=== PATIENT | female | born 1990 | race Caucasian/White ===

== ENCOUNTER 2022-01-31 17:20 | Inpatient (IN) ==
[2022-01-31 18:37] LABS: Basophils % 0.5 %; Eosinophils # 0.1 K/mcL (0.0-0.6); Eosinophils % 0.8 %; Hematocrit 39.1 % (35.3-44.9); Hemoglobin 13.3 g/dL (11.5-15.4); Immature Granulocytes % 0.3 % (0-4); Lymphocytes # 1.9 K/mcL (0.6-4.6); Lymphocytes % 25.8 %; Mean Corpuscular Hemoglobin 30.6 pg (28.0-33.3); Mean Corpuscular Volume 89.9 fL (83.0-100.0); Mean Platelet Volume 9.1 fL (9.4-12.4); Monocytes # 0.5 K/mcL (0.0-1.3); Monocytes % 6.8 %; Neutrophils # 4.9 K/mcL (1.6-8.9); Platelet Count 236 K/mcL (140-400); Red Blood Count 4.35 M/mcL (3.82-4.97); Red Cell Distribution Width 12.3 % (11.5-14.5); Segmented Neutrophils % 65.8 %; White Blood Count 7.4 K/mcL (4.3-11.1)
[2022-01-31 18:51] LABS: Acetaminophen < 10 mcg/mL (10-20); BUN/Creatinine Ratio 22 (6-26); Blood Urea Nitrogen 9 mg/dL (6-20); Calcium 8.9 mg/dL (8.6-10.3); Carbon Dioxide 24 mEq/L (23-29); Chloride 104 mEq/L (98-107); Ethanol < 10 mg/dL (Less than 10); Glucose 101 mg/dL (70-105); Osmolality,Calculated 279 (280-300); Potassium 3.3 mEq/L (3.5-5.1); Salicylate < 2.5 mg/dL (15.0-30.0); Sodium 135 mEq/L (136-145); eGFR For African Americans > 60 (> 60); eGFR For Non-African Americans > 60 (> 60)
[2022-01-31 18:52] LABS: Bacteria,Urine Few per hpf (None-Few); Bilirubin,Urine Negative (Negative); Blood,Urine Negative (Negative); Clarity,Urine Clear (Clear); Color,Urine Light-Yellow (Yellow); Glucose,Urine (UA) >=1000 mg/dL (Normal); Ketones,Urine Negative (Negative); Leukocyte Esterase,Urine Negative (Negative); Mucus,Urine Few per lpf (None-Few); Nitrite,Urine Negative (Negative); Protein,Urine Trace mg/dL (Neg-Trace); RBC,Urine 0-3 per hpf (0-3); Specific Gravity,Urine 1.027 (1.010-1.025); Squamous Epithelial Cell,Urine Moderate per hpf (None-Few); Urobilinogen,Urine Normal (Normal); WBC,Urine 0-3 per hpf (0-3)
[2022-01-31] MEDS ORDERED: cephALEXin 500 MG CAPSULE PO ONE (18:55)
[2022-01-31 19:09] LABS: Amphetamine Screen,Urine Negative ng/mL (Cutoff=1000); Barbiturate Screen,Urine Negative ng/mL (Cutoff=200); Benzodiazepines Screen,Urine Negative ng/mL (Cutoff=200); Cannabinoid Screen,Urine Positive ng/mL (Cutoff = 50); Cocaine Screen,Urine Negative ng/mL (Cutoff= 300); Opiate Screen,Urine Negative ng/mL (Cutoff=300); Phencyclidine Screen,Urine Negative ng/mL (Cutoff=25)
[2022-02-01] MEDS ORDERED: Acetaminophen 325 MG TABLET PO ONE (20:42)
[2022-02-01] MEDS: lamoTRIgine 25 MG TABLET PO SCH (21:14)
[2022-02-01] MEDS: hydrOXYzine pamoate 25 MG CAPSULE PO PRN (21:14)
[2022-02-02] MEDS: Prenatal Vit/FA 1 EACH TABLET PO SCH (08:05)
[2022-02-02] MEDS: Ondansetron ODT 4 MG TAB.RAPDIS SL PRN (09:48)
[2022-02-02] MEDS: hydrOXYzine pamoate 25 MG CAPSULE PO PRN (20:23)
[2022-02-02] MEDS: lamoTRIgine 25 MG TABLET PO SCH (20:23)
[2022-02-02] MEDS ORDERED: Acetaminophen 325 MG TABLET PO ONE (21:49)
[2022-02-03] MEDS: Prenatal Vit/FA 1 EACH TABLET PO SCH (07:57)
[2022-02-03 08:43] VITALS: BP 100/61; PULSE 85; TEMP 98.6; O2SAT 100
[2022-02-03] MEDS: Ondansetron ODT 4 MG TAB.RAPDIS SL PRN (10:47)
== END 2022-02-03 12:10 | disposition home or self-care (01) | DRG 566 ==
LOC: EMEROOARM 17:20 → 1ANU 02-01 01:35
PROVIDERS: ADMIT Psychiatry & Neurology Psychiatry; ATTEND Psychiatry & Neurology Psychiatry

== ENCOUNTER 2022-07-31 16:32 | Inpatient (IN) ==
[2022-07-31] MEDS ORDERED: Naloxone 0.4 MG/ML INJ IVP PRN (17:04)
[2022-07-31] MEDS ORDERED: Metoclopramide 10 MG/2 ML VIAL IVP PRN (17:04)
[2022-07-31] MEDS ORDERED: Lidocaine 1% 20 ML MDV INFILT PRN (17:04)
[2022-07-31] MEDS ORDERED: Famotidine 20 MG/2 ML VIAL IVP PRN (17:04)
[2022-07-31] MEDS ORDERED: *HR* Nalbuphine 10 MG/ML AMPUL IV PRN (17:04)
[2022-07-31] MEDS ORDERED: Azithromycin 500 MG in 0.9 % Sodium Chloride 250 ML IVPB PRN (17:04)
[2022-07-31] MEDS ORDERED: Penicillin G Potassium 5,000,000 UNIT in 0.9 % Sodium Chloride Mini Bag 100 ML IVPB ONE (17:15)
[2022-07-31] MEDS ORDERED: Oxytocin 30 UNIT/503 ML BAG IVC SCH (17:15)
[2022-07-31 17:57] LABS: Basophils % 0.4 %; Eosinophils % 0.4 %; Hemoglobin 12.3 g/dL (11.5-15.4); Immature Granulocytes % 0.5 % (0-4); Lymphocytes # 1.8 K/mcL (0.6-4.6); Lymphocytes % 24.3 %; Mean Corpuscular HGB Conc 33.2 g/dL (31.6-35.5); Mean Corpuscular Hemoglobin 31.1 pg (28.0-33.3); Mean Corpuscular Volume 93.4 fL (83.0-100.0); Mean Platelet Volume 10.3 fL (9.4-12.4); Monocytes # 0.5 K/mcL (0.0-1.3); Monocytes % 6.7 %; Platelet Count 227 K/mcL (140-400); Red Blood Count 3.96 M/mcL (3.82-4.97); Red Cell Distribution Width 13.2 % (11.5-14.5); Segmented Neutrophils % 67.7 %; White Blood Count 7.3 K/mcL (4.3-11.1)
[2022-07-31] MEDS: Ringers Solution, Lactated 1,000 ML IVC SCH (18:45)
[2022-07-31 18:56] LABS: Amphetamine Screen,Urine Negative ng/mL (Cutoff=1000); Barbiturate Screen,Urine Negative ng/mL (Cutoff=200); Benzodiazepines Screen,Urine Negative ng/mL (Cutoff=200); Cannabinoid Screen,Urine Negative ng/mL (Cutoff = 50); Cocaine Screen,Urine Negative ng/mL (Cutoff= 300); Opiate Screen,Urine Negative ng/mL (Cutoff=300); Phencyclidine Screen,Urine Negative ng/mL (Cutoff=25)
[2022-08-01] MEDS: Penicillin G Potassium 2,500,000 UNIT/105 ML MLS IVPB SCH ×4 (00:02→18:58)
[2022-08-01] MEDS: Ondansetron 4 MG/2 ML VIAL IVP PRN ×3 (04:00→23:32)
[2022-08-01] MEDS ORDERED: Ondansetron 4 MG/2 ML VIAL IVP ONE (08:36)
[2022-08-01] MEDS ORDERED: FLUoxetine 20 MG CAPSULE PO SCH (09:00)
[2022-08-01] MEDS ORDERED: Epidural Premix (fent/bupiv) 110 ML EP ONE (09:34)
[2022-08-01] MEDS ORDERED: EPHEDrine 50 MG/ML VIAL IVP PRN (11:18)
[2022-08-01] MEDS ORDERED: Epidural Premix (fent/bupiv) 110 ML EP SCH (11:30)
[2022-08-01] MEDS: Ringers Solution, Lactated 1,000 ML IVC SCH (18:57)
[2022-08-01] MEDS ORDERED: Ibuprofen 600 MG TABLET PO ONE (21:31)
[2022-08-02] MEDS: Acetaminophen 325 MG TABLET PO SCH ×4 (00:30→22:37)
[2022-08-02] MEDS: Ibuprofen 600 MG TABLET PO SCH ×4 (00:30→22:37)
[2022-08-02] MEDS ORDERED: Ondansetron ODT 4 MG TAB.RAPDIS SL PRN (01:56)
[2022-08-02] MEDS ORDERED: Measles/Mumps/Rubella Vacc 0.5 ML VIAL SQ PRN (01:56)
[2022-08-02] MEDS ORDERED: Lanolin 7 G OINT...G. TP PRN (01:56)
[2022-08-02] MEDS ORDERED: Rho Immune Globulin 1,500 UNIT SYRINGE IM PRN (01:56)
[2022-08-02] MEDS ORDERED: Benzocaine/Menthol 56 GM AEROSOL SPRAY TP PRN (01:56)
[2022-08-02] MEDS ORDERED: Oxytocin 30 UNIT/503 ML BAG IVC SCH (01:56)
[2022-08-02] MEDS: Metoprolol XL (24 HR) Succ 25 MG TAB.ER.24H PO SCH (09:50)
[2022-08-02] MEDS: Prenatal Vit/FA 1 EACH TABLET PO SCH (09:50)
[2022-08-03] MEDS: Acetaminophen 325 MG TABLET PO SCH ×3 (04:57→13:53)
[2022-08-03] MEDS: Ibuprofen 600 MG TABLET PO SCH ×3 (04:57→13:53)
[2022-08-03 08:13] VITALS: BP 112/67; PULSE 79; TEMP 97.5; O2SAT 97
[2022-08-03] MEDS: Prenatal Vit/FA 1 EACH TABLET PO SCH (08:43)
[2022-08-03] MEDS: Metoprolol XL (24 HR) Succ 25 MG TAB.ER.24H PO SCH (08:43)
== END 2022-08-03 18:30 | disposition home or self-care (01) | DRG 560 ==
LOC: 1NENULAB 16:32 → 1NENUOBS 08-02 03:57
PROVIDERS: ADMIT Advanced Practice Midwife; ATTEND Advanced Practice Midwife